=== PATIENT | female | born 1995 | race Caucasian/White ===

== ENCOUNTER 2018-06-29 13:57 | Emergency (ER) | payer OTHER ==
[~2018-06-29] VITALS: Ht 170.2 cm; Wt 59.1 kg
[2018-06-29 13:58] VITALS: TEMP 98.5
[2018-06-29] MEDS ORDERED: FLAGYL 250250 MG/TAB PO (14:11)
[2018-06-29] MEDS ORDERED: DOXYCYCLINE 10100 MG PO (14:11)
[2018-06-29] MEDS ORDERED: CARAFATE 1GM1 G PO (14:12)
[2018-06-29] MEDS ORDERED: ZOFRAN8 MG PO (14:12)
[2018-06-29] MEDS ORDERED: PROTONIX 40MG T40 MG PO (14:12)
[2018-06-29] MEDS ORDERED: ZANAFLEX 4MG TAB4 MG PO (14:13)
[2018-06-29] MEDS ORDERED: FLEXERIL 1010 MG/TAB PO (14:13)
[2018-06-29 14:30] LABS: COLLECTION METHOD CLEAN CATCH
[2018-06-29 14:34] LABS: BASO % 0.6 % (0.0-2.0); EOS # 0.1 (0.0-0.7); EOS % 0.7 % (0-4.0); GRAN % 60.2 % (42.2-75.2); HEMOGLOBIN 12.7 g/dl (12.0-15.0); LYMPH % 29.3 % (20.0-51.0); MEAN CELL VOLUME 87 fl (80.0-95.0); MEAN CORPUSCULAR HEMOGLOBIN 30 pg (26.0-32.0); MEAN CORPUSCULAR HGB CONC 35 g/dl (33.0-37.0); MEAN PLATELET VOLUME 10.7 fl (7.4-10.4); MONO # 0.6 (0.1-0.6); MONO % 8.9 % (1.7-9.3); PLATELET COUNT 214 K/mm3 (130-400); RED BLOOD COUNT 4.21 M/mm3 (4.10-5.30); REDCELL DISTRIBUTION WIDTH-CV 12.5 % (11.5-14.5)
[2018-06-29 14:37] LABS: HEMATOCRIT 36.8 % (35.0-45.0)
[2018-06-29 14:51] LABS: ALANINE AMINOTRANSFERASE 32 U/L (9-52); ALBUMIN 4.2 gm/dL (3.5-5.0); ALKALINE PHOSPHATASE 74 U/L (50-136); ANION GAP 12 mmol/L (7-16); AST,SGOT 27 U/L (15-37); BILIRUBIN,TOTAL 0.5 mg/dL (0.0-1.0); BLOOD UREA NITROGEN 14 mg/dL (7-17); C-REACTIVE PROTEIN < 0.5 mg/dL (0.0-0.9); CALCIUM 9.4 mg/dL (8.4-10.2); CARBON DIOXIDE 21 mmol/L (22-30); CHLORIDE 101 mmol/L (98-107); CREATININE, serum 0.76 mg/dL (0.52-1.25); GLUCOSE 77 mg/dL (74-106); POTASSIUM 3.9 mmol/L (3.4-5.0); SODIUM 134 mmol/L (137-145); TOTAL PROTEIN 7.3 gm/dL (6.4-8.2)
[2018-06-29 15:33] LABS: MUCOUS Present /lpf; PH 5 (5-8); URINE APPEARANCE Clear; URINE BACTERIA None Seen /hpf; URINE BILIRUBIN Negative (NEGATIVE); URINE BLOOD 3+ (NEGATIVE); URINE COLOR Amber; URINE GLUCOSE Negative (NEGATIVE); URINE KETONE Trace (NEGATIVE); URINE LEUKOCYTE ESTERASE Trace (NEGATIVE); URINE NITRATE Negative (NEGATIVE); URINE PROTEIN(semi-quant) 1+ (NEGATIVE)
[2018-06-29 16:29] VITALS: BP 119/63; PULSE 74
== END 2018-06-29 16:31 | disposition home or self-care (01) ==
LOC: COL.ER 13:57
PROVIDERS: Emergency Medicine
DX: R10.2 Pelvic and perineal pain (principal); Z30.432 Encounter for removal of intrauterine contraceptive device; K27.9 Peptic ulcer, site unspecified, unspecified as acute or chronic, without hemorrhage or perforation; F17.210 Nicotine dependence, cigarettes, uncomplicated
CPT/HCPCS: J1170; J2405; J7030

== ENCOUNTER 2018-07-20 23:28 | Emergency (ER) | payer OTHER ==
[~2018-07-20] VITALS: Ht 170.2 cm; Wt 59.1 kg
[~2018-07-20 23:28] MED LIST: CARAFATE 1GM1 G PO; DOXYCYCLINE 10100 MG PO; FLAGYL 250250 MG/TAB PO; FLEXERIL 1010 MG/TAB PO; PROTONIX 40MG T40 MG PO; ZANAFLEX 4MG TAB4 MG PO; ZOFRAN8 MG PO
[2018-07-20 23:33] VITALS: TEMP 98.7
[2018-07-20 23:54] LABS: BASO % 0.4 % (0.0-2.0); EOS # 0.1 (0.0-0.7); EOS % 1.1 % (0-4.0); GRAN # 6.4 (1.4-6.5); GRAN % 62.3 % (42.2-75.2); HEMATOCRIT 39.4 % (37.0-47.0); HEMOGLOBIN 13.6 g/dl (12.5-16.0); LYMPH # 2.7 (1.2-3.4); LYMPH % 26.2 % (20.0-51.0); MEAN CELL VOLUME 89 fl (80.0-100.0); MEAN CORPUSCULAR HEMOGLOBIN 31 pg (27.0-31.0); MEAN CORPUSCULAR HGB CONC 35 g/dl (33.0-37.0); MEAN PLATELET VOLUME 10.2 fl (7.4-10.4); MONO % 9.8 % (1.7-9.3); PLATELET COUNT 253 K/mm3 (130-400); RED BLOOD COUNT 4.45 M/mm3 (4.10-5.30); REDCELL DISTRIBUTION WIDTH-CV 12.8 % (11.5-14.5)
[2018-07-21 00:06] LABS: ALBUMIN 4.2 gm/dL (3.5-5.0); BILIRUBIN,TOTAL 0.7 mg/dL (0.0-1.0); CALCIUM 9.4 mg/dL (8.4-10.2); CREATININE, serum 0.74 mg/dL (0.52-1.25); POTASSIUM 3.8 mmol/L (3.4-5.0); TOTAL PROTEIN 7.2 gm/dL (6.4-8.2)
[2018-07-21] MEDS ORDERED: CARAFATE 1GM1 G PO (00:15)
[2018-07-21] MEDS ORDERED: PROTONIX 40MG T40 MG PO (00:15)
[2018-07-21] MEDS ORDERED: ZOFRAN ODT4 MG PO (00:15)
[2018-07-21 01:14] VITALS: BP 106/70; PULSE 85
== END 2018-07-21 01:17 | disposition home or self-care (01) ==
LOC: COL.ER 23:28
PROVIDERS: Emergency Medicine
DX: R10.13 Epigastric pain (principal); R11.0 Nausea; K21.9 Gastro-esophageal reflux disease without esophagitis; F17.290 Nicotine dependence, other tobacco product, uncomplicated; Z88.2 Allergy status to sulfonamides
CPT/HCPCS: J2405; J3010; J7030